=== PATIENT | female | born 1995 | race American Indian/Alaskan Native ===

== ENCOUNTER 2022-03-09 21:17 | Emergency (ER) | payer OTHER ==
[2022-03-09 21:46] VITALS: BP 111/63
== END 2022-03-09 23:30 | disposition left against medical advice (07) ==
LOC: ED 21:17
DX: O26.891 Other specified pregnancy related conditions, first trimester (principal); M54.9 Dorsalgia, unspecified; Z53.21 Procedure and treatment not carried out due to patient leaving prior to being seen by health care provider; Z3A.12 12 weeks gestation of pregnancy

== ENCOUNTER 2022-06-19 05:50 | Inpatient (IN) | payer OTHER ==
[2022-06-19] MEDS ORDERED: MAGNESIUM HYDROXIDE (MOM) ORAL LIQD UDC PO PRN (06:06)
[2022-06-19] MEDS ORDERED: ACETAMINOPHEN 325 MG TAB PO PRN (06:06)
[2022-06-19] MEDS ORDERED: LANOLIN/ZINC/DIMETHICONE (LANSINOH) 7 GM TP PRN (06:06)
[2022-06-19] MEDS ORDERED: diphenhydrAMINE 25 MG CAP PO PRN (06:06)
[2022-06-19] MEDS ORDERED: WITCH HAZEL/ GLYCERIN PAD TP PRN (06:06)
--- NOTE | 2022-06-19 06:13 | History and Physical Report ---
History of Present Illness Date of examination: 06/19/22 Date of admission: 06/19/22 05:50 Chief complaint: Delivered in route in EMS History of present illness: 26 y/o with care at [facility] started with contractions at 0430 and delivered at 0530 in the EMS Past History Past Medical History: no pertinent history Past Surgical History: no surgical history Family/Genetic History: none Social history: no significant social history - Obstetrical History Expected Date of Delivery: 07/10/22 Actual Gestation: 37 Week(s) 0 Day(s) : 2 Para: 1 Number of Living Children: 1 Medications and Allergies Allergies Allergy/AdvReac Type Severity Reaction Status Date / Time No Known Allergies Allergy Unverified 03/09/22 21:46 Active Meds: Active Medications Acetaminophen (Acetaminophen 325 Mg Tab) 650 mg PO Q4H PRN PRN Reason: Pain MILD(1-3)/Fever >100.5/JALLOH Bisacodyl (Bisacodyl 10 Mg Rect Supp) 10 mg GA BID PRN PRN Reason: Constipation Diphenhydramine HCl (Diphenhydramine 25 Mg Cap) 25 mg PO Q6H PRN PRN Reason: Itching Ibuprofen (Ibuprofen 800 Mg Tab) 800 mg PO Q6H VAISHALI Magnesium Hydroxide (Magnesium Hydroxide (Mom) Oral Liqd Udc) 30 ml PO HS PRN PRN Reason: Constipation Multi-Ingredient Ointment (Lanolin/Zinc/Dimethicone (Lansinoh) 7 Gm) 1 applic TP PRN PRN PRN Reason: Sore Nipples Oxycodone/Acetaminophen (Oxycodone /Acetaminophen 5-325mg Tab) 1 tab PO Q6H PRN PRN Reason: Pain, Moderate (4-6) Sodium Chloride (Sodium Chloride 0.9% 10 Ml Flush Syringe) 10 ml IV PRN NR Witch Mary/Glycerin (Witch Mary/ Glycerin Pad) 1 each TP PRN PRN PRN Reason: Hemorrhoid/cleansing/soothing Review of Systems All systems: negative - Physical Exam Breasts: Positive: deferred, mass Cardiovascular: Other Abdomen: Positive: soft Genitourinary (Female): Positive: normal external genitalia Vulva: both: normal Uterus: Positive: enlarged Anus/Rectum: Positive: normal perianal skin Extremities: Positive: normal Deep Tendon Reflex Grade: Normal +2 Results All other labs normal. Assessment and Plan A: 37 week gestation S/P delivery in EMS P: labs care
--- NOTE | 2022-06-19 06:16 | Procedure Note ---
OB Delivery Note - Delivery Date of Delivery: 06/19/22 Estimated blood loss: 200cc - Vaginal Delivery presentation: vertex Delivery position: OA Intrapartum events: precipitous labor- <3hr Delivery induction: none Delivery monitor: none Route of delivery: Delivery placenta: spontaneous Delivery cord: 3 umbilical vessels Episiotomy: none Delivery laceration: none Anesthesia: none Delivery comments: of a viable female by EMS provider on 06/19 @ 0530. Perineum inspected no repair needed. Uterus emptied of clots. Pitocin started. Mother and baby doing well. - Infant A Infant Gender: Female
[2022-06-19 06:48] LABS: Basophils % (Auto) 0.3 % (0.0-1.8); Eosinophils % (Auto) 0.4 % (0.0-4.3); Hematocrit 31.4 % (30.3-42.9); Lymphocytes # (Auto) 1.8 K/mm3 (1.2-5.4); Lymphocytes % (Auto) 27.1 % (13.4-35.0); Mean Corpuscular HGB Conc 32 % (30-34); Mean Corpuscular Volume 85 fl (79-97); Monocytes # (Auto) 0.6 K/mm3 (0.0-0.8); Monocytes % (Auto) 8.4 % (0.0-7.3); Platelet Count 98 K/mm3 (140-440); Red Blood Count 3.69 M/mm3 (3.65-5.03); Red Cell Distribution Width 15.1 % (13.2-15.2)
[2022-06-19] MEDS: IBUPROFEN 800 MG TAB PO SCH ×3 (08:17→20:13)
[2022-06-19 09:07] LABS: Hematocrit 30.8 % (30.3-42.9); Hemoglobin 10.1 gm/dl (10.1-14.3); Mean Corpuscular HGB Conc 33 % (30-34); Mean Corpuscular Volume 84 fl (79-97); Red Blood Count 3.66 M/mm3 (3.65-5.03); Red Cell Distribution Width 14.9 % (13.2-15.2)
[2022-06-19 09:10] LABS: Platelet Count 98 K/mm3 (140-440)
[2022-06-19 20:26] LABS: Hematocrit 28.4 % (30.3-42.9); Hemoglobin 9.4 gm/dl (10.1-14.3)
[2022-06-19] MEDS: oxyCODONE /ACETAMINOPHEN 5-325MG TAB PO PRN (23:31)
[2022-06-20] MEDS: IBUPROFEN 800 MG TAB PO SCH ×4 (10:00→23:58)
[2022-06-20] MEDS ORDERED: FERROUS SULFATE 325 MG TAB PO ONE (12:42)
[2022-06-20] MEDS: FERROUS SULFATE 325 MG TAB PO SCH ×2 (12:44→23:06)
--- NOTE | 2022-06-20 13:23 | Progress Note ---
Assessment and Plan A: PP Day #1 Asymptomatic Anemia P: Follow Routine Potpartum Orders Ferrous Sulfate 325mg PO BID D/C in the AM RTo in 6 Weeks Subjective - Subjective Date of service: 06/20/22 Patient reports: appetite normal, voiding normally, pain well controlled, flatus, ambulating normally [place]: doing well, bottle feeding Objective - Vital Signs Latest vital signs: Vital Signs Temp Pulse Resp BP BP Pulse Ox Pulse Ox 06/20/22 07:56 100 06/20/22 00:31 18 06/20/22 00:00 18 06/19/22 23:48 98.5 F 75 20 114/68 100 06/19/22 23:31 20 06/19/22 21:13 18 06/19/22 20:13 20 06/19/22 20:00 100 06/19/22 15:30 98.3 F 66 20 112/66 99 99 Intake and Output 06/19/22 06/20/22 06/20/22 22:59 06:59 14:59 Intake Total 240 480 Output Total 600 Balance -360 480 Intake: Intake, Free Water 240 480 Output: Urine 600 Void 600 Other: Total, Output Amount 600 # Voids Void 1 1 - Exam Breasts: Present: normal Cardiovascular: Present: Regular rate Lungs: Present: Clear to auscultation, Normal air movement Abdomen: Present: normal appearance, soft, normal bowel sounds Uterus: Present: normal, firm, fundal height below umbilicus Extremities: Present: normal - Labs Labs: Abnormal lab results 06/19/22 Range/Units 19:52 Hgb 9.4 L (10.1-14.3) gm/dl Hct 28.4 L (30.3-42.9) %
--- NOTE | 2022-06-20 13:25 | Discharge Summary ---
Providers - Providers Date of Admission: 06/19/22 06:06 Date of discharge: 06/21/22 Attending physician: DONNA TRAMMELL MD 06/20/22 06:04 Consult to Case Management [CONS] Routine Services Needed at Discharge: Mohs Surgeon/General Dermatologist Notified:: no Additional Physician Instructions: assistance with obtaining car seat Primary care physician: DONNA TRAMMELL MD Hospitalization Reason for admission: other (Delivery in EMS) Delivery: Episiotomy: none Laceration: none Other procedures: none complications: none Discharge diagnosis: IUP at term delivered baby: female Condition at discharge: Good Disposition: 01 HOME / SELF CARE / HOMELESS Plan - Provider Discharge Summary Activity: routine, no sex for 6 weeks, no heavy lifting 4 weeks, no strenuous exercise Diet: routine Instructions: routine Additional instructions: [] Smoking cessation referral if applicable(refer to patient education folder for contact #) [] Refer to [facility]'s [facility] Booklet Call your doctor immediately for: * Fever > 100.5 * Heavy vaginal bleeding ( >1 pad per hour) * Severe persistent headache * Shortness of breath * Reddened, hot, painful area to leg or breast * Drainage or odor from incision. * Keep incision clean and dry at all times and follow doctor's instructions regarding bathing/showering - Follow up plan Follow up: DONNA TRAMMELL MD [Primary Care Provider] - 6 Weeks
[2022-06-20] MEDS: oxyCODONE /ACETAMINOPHEN 5-325MG TAB PO PRN (17:46)
[2022-06-21] MEDS: oxyCODONE /ACETAMINOPHEN 5-325MG TAB PO PRN (16:15)
[2022-06-21 16:50] VITALS: BP 117/68
== END 2022-06-21 18:32 | disposition home or self-care (01) | DRG 775 ==
LOC: LD 05:50 → UNDOADMIN 05:50 → LD 06:06 → OB 15:22
PROVIDERS: ADMIT Obstetrics & Gynecology Gynecology; ATTEND Obstetrics & Gynecology Gynecology
PROC: 10E0XZZ Delivery of Products of Conception, External Approach (ICD-10-PCS; principal; 2022-06-19)
DX: O62.3 Precipitate labor (principal); Z20.822 Contact with and (suspected) exposure to COVID-19; Z3A.37 37 weeks gestation of pregnancy; Z37.0 Single live birth; O90.81 Anemia of the puerperium
CPT/HCPCS: 36415; 85014; 85018; 85025; 85027; 86592; 86706; 86762; 86850; 86900; 86901; 87806; G0378; U0003